=== PATIENT | male | born 1950 | race American Indian/Alaskan Native ===

== ENCOUNTER 2017-05-01 10:38 | Emergency (ER) | payer MEDICARE ==
[2017-05-01 11:20] LABS: Basophils % (Auto) 0.5 % (0.0-1.8); Eosinophils % (Auto) 1.1 % (0.0-4.3); Hematocrit 43.1 % (35.5-45.6); Hemoglobin 13.9 gm/dl (11.8-15.2); Mean Corpuscular HGB Conc 32 % (32-34); Mean Corpuscular Volume 80 fl (84-94); Platelet Count 256 K/mm3 (140-440); Red Blood Count 5.41 M/mm3 (3.65-5.03); Red Cell Distribution Width 14.8 % (13.2-15.2); White Blood Count 7.7 K/mm3 (4.5-11.0)
[2017-05-01 11:27] LABS: Mean Corpuscular Hemoglobin 26 pg (28-32)
[2017-05-01 11:47] LABS: BUN/Creatinine Ratio 23.75; Blood Urea Nitrogen 19 mg/dL (9-20); Calcium 9.2 mg/dL (8.4-10.2); Carbon Dioxide 27 mmol/L (22-30); Glucose 94 mg/dL (75-100)
[2017-05-01 11:48] LABS: Anion Gap 17 mmol/L; Chloride 101.9 mmol/L (98-107); Potassium 4.2 mmol/L (3.6-5.0); Sodium 142 mmol/L (137-145)
[2017-05-01 12:06] LABS: Bilirubin,Urine NEG (Negative); Blood,Urine SM (Negative); Ketones,Urine NEG (Negative); Leukocyte Esterase,Urine NEG (Negative); Mucus,Urine FEW /HPF; Nitrite,Urine NEG (Negative); Protein,Urine <15 mg/dL mg/dL (Negative); Urobilinogen,Urine < 2.0 mg/dL (<2.0); WBC,Urine < 1.0 /HPF (0.0-6.0)
[2017-05-01] MEDS ORDERED: CATAPRES PO ONE (15:42)
[2017-05-01] MEDS ORDERED: CATAPRES ONE (15:43)
[2017-05-01] MEDS ORDERED: BABY ASPIRIN PO ONE (16:54)
[2017-05-01] MEDS ORDERED: APRESOLINE PO ONE (16:55)
--- NOTE | 2017-05-01 16:56 | Emergency Department Report ---
ED Chest Pain HPI - General Chief Complaint: Chest Pain Stated Complaint: CHEST PAIN Time Seen by Provider: 05/01/17 15:56 Source: patient Mode of arrival: Ambulatory Limitations: No Limitations - History of Present Illness Initial Comments: Patient is a 66-year-old male past medical history of hypertension presents with left-sided chest pain that's been going on for the last 2 days. Patient states that he is not having any pain at the moment. When he was having pain was a 5 out 10 occurred in his left chest and radiate down to his arm it was a sharp pain that was intermittent. He says that he's had this pain type of pain before in the past. Nothing makes the pain better or worse. He states that he has elevated blood pressure and he has not been taking his blood pressure medications. Patient denies having headache, shortness of breath, blurry vision , abdominal pain or any fevers. Severity scale (0 -10): 0 - Related Data Home Medications Medication Instructions Recorded Confirmed Last Taken Lisinopril [Zestril TAB] 40 mg PO QDAY 08/28/15 08/28/15 Unknown Allergies Allergy/AdvReac Type Severity Reaction Status Date / Time No Known Allergies Allergy Unverified 08/28/15 13:15 Heart Score - HEART Score History: Slightly suspicious EKG: Normal Age: 45-65 Risk factors: 1-2 risk factors Troponin: < normal limit HEART Score: 2 ED Review of Systems ROS: Stated complaint: CHEST PAIN Other details as noted in HPI Constitutional: no symptoms reported Eyes: denies: eye pain, eye discharge, vision change ENT: denies: ear pain, throat pain Respiratory: denies: cough, shortness of breath, wheezing Cardiovascular: chest pain Endocrine: no symptoms reported Gastrointestinal: denies: abdominal pain, nausea, diarrhea Genitourinary: denies: urgency, dysuria Musculoskeletal: denies: back pain, joint swelling, arthralgia Skin: denies: rash, lesions Neurological: denies: headache, weakness, paresthesias Psychiatric: denies: anxiety, depression Hematological/Lymphatic: denies: easy bleeding, easy bruising ED Past Medical Hx - Past Medical History Previous Medical History?: Yes Hx Hypertension: Yes Hx GERD: Yes - Social History Smoking Status: Never Smoker - Medications Home Medications: Home Medications Medication Instructions Recorded Confirmed Last Taken Type Lisinopril [Zestril TAB] 40 mg PO QDAY 08/28/15 08/28/15 Unknown History ED Physical Exam - General Limitations: No Limitations General appearance: alert, in no apparent distress - Head Head exam: Present: atraumatic, normocephalic - Eye Eye exam: Present: normal appearance - ENT ENT exam: Present: normal exam - Neck Neck exam: Present: normal inspection - Respiratory Respiratory exam: Present: normal lung sounds bilaterally - Cardiovascular Cardiovascular Exam: Present: regular rate, normal rhythm - GI/Abdominal GI/Abdominal exam: Present: soft - Extremities Exam Extremities exam: Present: normal inspection - Back Exam Back exam: Present: normal inspection, full ROM - Neurological Exam Neurological exam: Present: alert, oriented X3, CN II-XII intact - Psychiatric Psychiatric exam: Present: normal affect, normal mood - Skin Skin exam: Present: warm, dry, intact, normal color. Absent: rash ED Course Vital Signs 05/01/17 05/01/17 05/01/17 10:49 15:18 15:20 Temperature 98.1 F Pulse Rate 76 67 65 Respiratory 17 11 L 12 Rate Blood Pressure 199/120 Blood Pressure 199/120 [Left] O2 Sat by Pulse 100 93 Oximetry 05/01/17 05/01/17 05/01/17 15:30 15:40 15:47 Temperature Pulse Rate 62 61 62 Respiratory 11 L 13 Rate Blood Pressure 208/102 208/102 208/102 Blood Pressure [Left] O2 Sat by Pulse 99 98 Oximetry 05/01/17 05/01/17 05/01/17 15:50 16:00 16:10 Temperature Pulse Rate 61 55 L 64 Respiratory 13 16 12 Rate Blood Pressure 208/102 175/103 175/103 Blood Pressure [Left] O2 Sat by Pulse 99 98 100 Oximetry 05/01/17 05/01/17 05/01/17 16:14 16:20 16:32 Temperature Pulse Rate 60 66 66 Respiratory 18 14 19 Rate Blood Pressure 175/103 175/103 Blood Pressure 175/103 [Left] O2 Sat by Pulse 99 99 100 Oximetry 05/01/17 05/01/17 05/01/17 16:40 16:50 17:00 Temperature Pulse Rate 63 69 61 Respiratory 16 11 L 10 L Rate Blood Pressure 175/103 175/103 171/101 Blood Pressure [Left] O2 Sat by Pulse 97 99 99 Oximetry 05/01/17 17:09 Temperature Pulse Rate 72 Respiratory Rate Blood Pressure 171/101 Blood Pressure [Left] O2 Sat by Pulse Oximetry - Reevaluation(s) Reevaluation #1: 05/01/17 17:04 Patient currently has no complaints he is not having any chest pain discuss diagnostic findings with patient. Reevaluation #2: 05/01/17 18:08 Discussed with patient and negative troponin studies and negative EKG. Patient' s blood pressure is 156/90. Discussed with patient is a follow-up with family practice doctor to better control his high blood pressure. Discussed return precautions to come to the ED. Additional verbal discharge instructions were given. MARA score - Mara Score Age > 65: (0) No Aspirin use within the Past 7 Days: (0) No 3 or more CAD Risk Factors: (0) No 2 or more Angina events in past 24 hrs: (1) Yes Known CAD with more than 50% Stenosis: (0) No Elevated Cardiac Markers: (0) No ST Deviation Greater than 0.5mm: (0) No MARA Score: 1 ED Medical Decision Making - Lab Data Result diagrams: 05/01/17 11:12 05/01/17 11:12 Lab Results 05/01/17 05/01/17 05/01/17 Range/Units 11:12 11:12 11:45 WBC 7.7 (4.5-11.0) K/mm3 RBC 5.41 H (3.65-5.03) M/mm3 Hgb 13.9 (11.8-15.2) gm/dl Hct 43.1 (35.5-45.6) % MCV 80 L (84-94) fl MCH 26 L (28-32) pg MCHC 32 (32-34) % RDW 14.8 (13.2-15.2) % Plt Count 256 (140-440) K/mm3 Lymph % (Auto) 45.8 H (13.4-35.0) % [place] % (Auto) 8.3 H (0.0-7.3) % Eos % (Auto) 1.1 (0.0-4.3) % Baso % (Auto) 0.5 (0.0-1.8) % Lymph # 3.5 (1.2-5.4) K/mm3 [place] # 0.6 (0.0-0.8) K/mm3 Eos # 0.1 (0.0-0.4) K/mm3 Baso # 0.0 (0.0-0.1) K/mm3 Seg Neutrophils % 44.3 (40.0-70.0) % Seg Neutrophils # 3.4 (1.8-7.7) K/mm3 Sodium 142 (137-145) mmol/L Potassium 4.2 (3.6-5.0) mmol/L Chloride 101.9 (98-107) mmol/L Carbon Dioxide 27 (22-30) mmol/L Anion Gap 17 mmol/L BUN 19 (9-20) mg/dL Creatinine 0.8 (0.8-1.5) mg/dL Estimated GFR > 60 ml/min BUN/Creatinine Ratio 23.75 % Glucose 94 (75-100) mg/dL Calcium 9.2 (8.4-10.2) mg/dL Troponin T < 0.010 (0.00-0.029) ng/mL Urine Color Yellow (Yellow) Urine Turbidity Clear (Clear) Urine pH 5.0 (5.0-7.0) Ur Specific [place] 1.021 (1.003-1.030) Urine Protein <15 mg/dl (Negative) mg/dL Urine Glucose (UA) Neg (Negative) mg/dL Urine Ketones Neg (Negative) mg/dL Urine Blood Sm (Negative) Urine Nitrite Neg (Negative) Urine Bilirubin Neg (Negative) Urine Urobilinogen < 2.0 (<2.0) mg/dL Ur Leukocyte Esterase Neg (Negative) Urine WBC (Auto) < 1.0 (0.0-6.0) /HPF Urine RBC (Auto) 7.0 (0.0-6.0) /HPF Urine Mucus Few /HPF 05/01/17 Range/Units 13:34 WBC (4.5-11.0) K/mm3 RBC (3.65-5.03) M/mm3 Hgb (11.8-15.2) gm/dl Hct (35.5-45.6) % MCV (84-94) fl MCH (28-32) pg MCHC (32-34) % RDW (13.2-15.2) % Plt Count (140-440) K/mm3 Lymph % (Auto) (13.4-35.0) % [place] % (Auto) (0.0-7.3) % Eos % (Auto) (0.0-4.3) % Baso % (Auto) (0.0-1.8) % Lymph # (1.2-5.4) K/mm3 [place] # (0.0-0.8) K/mm3 Eos # (0.0-0.4) K/mm3 Baso # (0.0-0.1) K/mm3 Seg Neutrophils % (40.0-70.0) % Seg Neutrophils # (1.8-7.7) K/mm3 Sodium (137-145) mmol/L Potassium (3.6-5.0) mmol/L Chloride (98-107) mmol/L Carbon Dioxide (22-30) mmol/L Anion Gap mmol/L BUN (9-20) mg/dL Creatinine (0.8-1.5) mg/dL Estimated GFR ml/min BUN/Creatinine Ratio % Glucose (75-100) mg/dL Calcium (8.4-10.2) mg/dL Troponin T < 0.010 (0.00-0.029) ng/mL Urine Color (Yellow) Urine Turbidity (Clear) Urine pH (5.0-7.0) Ur Specific [place] (1.003-1.030) Urine Protein (Negative) mg/dL Urine Glucose (UA) (Negative) mg/dL Urine Ketones (Negative) mg/dL Urine Blood (Negative) Urine Nitrite (Negative) Urine Bilirubin (Negative) Urine Urobilinogen (<2.0) mg/dL Ur Leukocyte Esterase (Negative) Urine WBC (Auto) (0.0-6.0) /HPF Urine RBC (Auto) (0.0-6.0) /HPF Urine Mucus /HPF - EKG Data -: EKG Interpreted by Ma - EKG Data 05/01/17 17:05 Patient's first EKG shows normal sinus rhythm no ST segment elevation and no T- wave inversion Patient's second EKG shows sinus rhythm with first-degree AV block minimal criteria for LVH - Radiology Data Radiology results: image reviewed Chest x-ray: Shows no acute cardiopulmonary findings - Medical Decision Making Medical diagnosis: Pericarditis Differential diagnosis: Pneumothorax, non-STEMI, 1. EKG, troponin, CBC, CMP, chest x-ray, aspirin and clonidine for blood pressure control Patient has low risk of ACS syndrome and 2negativem troponins.I will have patient follow up with a primary care doctor. Critical care attestation.: If time is entered above; I have spent that time in minutes in the direct care of this critically ill patient, excluding procedure time. ED Disposition Clinical Impression: Chest pain Qualifiers: Chest pain type: other chest pain Qualified Code(s): R07.89 - Other chest pain HTN (hypertension) Qualifiers: Hypertension type: unspecified Qualified Code(s): I10 - Essential (primary) hypertension Disposition: - TO HOME OR SELFCARE Is pt being admited?: No Does the pt Need Aspirin: No Condition: Stable Instructions: Chest Pain (ED), Hypertension (ED) Referrals: PRIMARY CARE, [Primary Care Provider] - 3-5 Days YANCI BUSCH MD [Staff Physician] - 3-5 Days Time of Disposition: 18:10
--- NOTE | 2017-05-01 17:49 | XRay Report ---
FINAL REPORT PROCEDURE: Chest. TECHNIQUE: Frontal and lateral views. HISTORY: eval COMPARISON: No prior studies are available for comparison. FINDINGS: The heart and mediastinum appear normal. The lungs are clear and well expanded. There are no pleural effusions. The soft tissues and regional skeleton are unremarkable. IMPRESSION: No evidence of acute disease.
[2017-05-01 18:28] VITALS: BP 156/97
== END 2017-05-01 18:52 | disposition home or self-care (01) ==
LOC: ED 10:38
DX: R07.89 Other chest pain (principal); I10 Essential (primary) hypertension; K21.9 Gastro-esophageal reflux disease without esophagitis
CPT/HCPCS: 36415; 71020; 80048; 81001; 84484; 85025; 93005; 93010; 99285